=== PATIENT | female | born 1950 | race Caucasian/White ===

== ENCOUNTER 2017-08-16 09:33 | Inpatient (IN) | payer MEDICARE, OTHER ==
[~2017-08-16] VITALS: Ht 165.1 cm; Wt 68.9 kg
[~2017-08-16 09:33] MED LIST: BENAZEPRIL HCL10 MG; LEVOTHYROXIN0.125 M1; UNKNOWN BP MED; levoxyl
[2017-08-16 09:38] VITALS: BP 240/104
[2017-08-16] MEDS ORDERED: VASOTEC10 MG PO (09:44)
[2017-08-16 10:14] LABS: ABSOLUTE EOSINOPHILS 0.1 thou/uL (0.0-0.7); ABSOLUTE LYMPHOCYTES 1.3 thou/uL (0.8-5.3); ABSOLUTE MONOCYTES 0.5 thou/uL (0.0-1.2); ABSOLUTE NEUTROPHILS 2.2 thou/uL (1.6-8.1); BASOPHILS 0.9 %; EOSINOPHILS 1.3 %; HEMATOCRIT 46.4 % (37.0-47.0); HEMOGLOBIN 16.3 gm/dL (12.0-15.0); LYMPHOCYTES 31.9 %; MCH 32.1 pg (26.0-34.0); MCHC 35.1 g/dL (28.0-37.0); MCV 91.5 fL (80.0-100.0); MONOCYTES 11.7 %; MPV 6.7 fl. (7.2-11.1); NUCLEATED RBCS 0 /100WBC; PLATELET COUNT* 175 thou/uL (150-400); POLYS 54.2 %; RBC 5.08 mil/uL (4.20-5.00); RDW-CV 13.7 % (10.5-14.5); WBC 4.1 thou/uL (4.0-11.0)
[2017-08-16 10:19] LABS: ANION GAP 5 mmol/L (7-16); BUN 11 mg/dL (7-18); CALCIUM 9.1 mg/dL (8.5-10.1); CHLORIDE 106 mmol/L (98-107); CO2 30 mmol/L (21-32); CREATININE 0.7 mg/dL (0.6-1.3); GLUCOSE 106 mg/dL (70-99); POTASSIUM 3.3 mmol/L (3.5-5.1); SODIUM 141 mmol/L (136-145)
[2017-08-16 10:29] LABS: ALBUMIN 3.9 g/dL (3.4-5.0); ALKALINE PHOSPHATASE 79 U/L (46-116); LIPASE 246 U/L (73-393); SGOT 27 U/L (15-37); SGPT 28 U/L (30-65); TOTAL BILIRUBIN 0.4 mg/dL (<0.1-1.0); TOTAL PROTEIN 7.7 g/dL (6.4-8.2); TROPONIN-I LEVEL <0.06 ng/mL (<0.06)
[2017-08-16 11:05] LABS: URINE BILIRUBIN NEGATIVE (Negative); URINE BLOOD NEGATIVE (Negative); URINE CLARITY CLEAR; URINE COLOR YELLOW; URINE GLUCOSE-RANDOM NEGATIVE (Negative); URINE KETONES NEGATIVE (Negative); URINE NITRITE-REFLEX NEGATIVE (Negative); URINE PROTEIN NEGATIVE (Negative); URINE SPECIFIC GRAVITY <= 1.005 (1.005-1.030); URINE UROBILINOGEN 0.2 E.U./dl (0.2-1.0)
[2017-08-16 11:07] LABS: URINE LEUKOCYTES-REFLEX 2+ (Negative)
[2017-08-16 11:15] LABS: BACTERIA-REFLEX 1-9 Few /HPF (None Seen); SQUAMOUS 4-10 Moderate /LPF (0-3); TRANSITIONAL EPITHEL CELL 0-3 Few /LPF (None Seen); URINE RBC None Seen /HPF (0-2); URINE WBC-REFLEX 6-15 Few /HPF (0-5)
[2017-08-16 11:16] LABS: CASTS None Seen /LPF (None Seen); CRYSTALS None Seen /LPF (None Seen)
--- NOTE | 2017-08-16 12:02 | NUR ---
LT SIDE UPPER LIP SWELLING. NO TONGUE SWELLING. LEVAQUIN IV STOPPED IMMEDIATELY. 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 LEVAQUIN ADDED TO PT'S ALLERGIES. ORDER RECEIVED FOR BENADRYL IV NOW.
[2017-08-16 12:22] VITALS: BP 190/84
[2017-08-16 12:40] VITALS: BP 168/77
[2017-08-16] MEDS ORDERED: ASPIR 8181 MG PO (13:28)
[2017-08-16] MEDS ORDERED: VITAMIN D1000 UNI1 PO (13:30)
[2017-08-16 13:59] LABS: CALCIUM 8.7 mg/dL (8.5-10.1); CREATININE 0.7 mg/dL (0.6-1.3); MAGNESIUM 1.9 mg/dL (1.8-2.4); POTASSIUM 3.6 mmol/L (3.5-5.1)
--- NOTE | 2017-08-16 15:08 | NUR ---
PT ARRIVED TO THE FLOOR AT 1230 ADMITED UNDER THE CARE OF DR LEE. PT IS A&O X4 CALM AND COOPERATIVE. PT DENIES AND C/O N/V OR PAIN. PT ORIENTED TO UNIT AND SERVICES. VS OBTAINED AND NURSING ASSESSMENT COMPLETED. PT KEPT NPO FOR CARDIAC STRESS TEST. WILL CONTINUE TO CARRY OUT POC.
--- NOTE | 2017-08-16 15:38 | 2DMMODE ---
[place] [address] 2 D/M-MODE ECHOCARDIOGRAM Name: CARLO MORROW Room: [address] IN [facility]#: [id number] Admission: 08/16/17 Attend Phys: Carlos Gill Discharge: Date of : 48 Date of Service: 08/16/17 1538 Report #: [id number] THIS REPORT FOR: //name// APPROVED REPORT Study performed: 08/16/2017 14:44:18 EXAM: Comprehensive 2D, Doppler, and color-flow Echocardiogram Patient Location: In-Patient Room #: 209 Status: routine BSA: 1.78 HR: 62 bpm BP: 190/84 mmHg Rhythm: NSR Other Information Study Quality: Good Indications Chest Pain 2D Dimensions LVEF(%): 77.83 (>50%) IVSd: 10.75 (7-11mm) LVOT Diam: 21.16 (18-24mm) LVDd: 48.25 mm PWd: 8.40 (7-11mm) Ascending Ao: 30.64 (22-36mm) LVDs: 25.79 (25-40mm) Aortic Root: 27.40 mm Burgos's LVEF: 77.83 % Volumes Left Atrial Volume (Systole) LA ESV Index: 20.50 mL/m2 Aortic Valve AoV Peak Carlo.: 1.32 m/s AO Peak Gr.: 6.97 mmHg LVOT Max P.71 mmHg AO Mean Gr.: 3.64 mmHg LVOT Mean P.56 mmHg LVOT Max V: 0.96 m/s AO V2 VTI: 27.94 cm LVOT Mean V: 0.56 m/s LEEANNE (VTI): 2.63 cm2 LVOT V1 VTI: 20.91 cm Mitral Valve E/A Ratio: 0.83 [place] [address] 2 D/M-MODE ECHOCARDIOGRAM Name: CARLO MORROW Room: [address] IN ..#: [id number] Admission: 08/16/17 Attend Phys: Carlos Gill Discharge: Date of : 48 Date of Service: 08/16/17 1538 Report #: [id number] MV Decel. Time: 269.35 ms MV E Max Carlo.: 0.65 m/s MV PHT: 78.11 ms MVA (PHT): 2.82 cm2 TDI E/Lateral E': 8.13 E/Medial E': 9.29 Medial E' Carlo.: 0.07 m/s Lateral E' Carlo.: 0.08 m/s Pulmonary Valve PV Peak Carlo.: 0.93 m/s PV Peak Gr.: 3.47 mmHg Tricuspid Valve TR Peak Gr.: 27.19 mmHg RVSP: 32.00 mmHg Left Ventricle The left ventricle is normal size. There is normal LV segmental wall motion. There is normal left ventricular wall thickness. Left ventricular systolic function is normal. The left ventricular ejection fraction is within the normal range. LVEF is 60%. Grade I - abnormal relaxation pattern. Right Ventricle The right ventricle is normal size. The right ventricular systolic function is normal. Atria Left atrium is mildly dilated. The right atrium size is normal. Aortic Valve The aortic valve is normal in structure. No aortic regurgitation is present. There is no aortic valvular stenosis. Mitral Valve The mitral valve is normal in structure. Mild mitral regurgitation. No evidence of mitral valve stenosis. Tricuspid Valve The tricuspid valve is normal in structure. Mild tricuspid regurgitation. The RVSP is 30-35 mmHg. Pulmonic Valve The pulmonary valve is normal in structure. There is no pulmonic [place] [address] 2 D/M-MODE ECHOCARDIOGRAM Name: CARLO MORROW Room: [address] IN ..#: [id number] Admission: 08/16/17 Attend Phys: Carlos Gill Discharge: Date of : 48 Date of Service: 08/16/17 1538 Report #: [id number] Great Vessels The aortic root is normal in size. IVC is normal in size and collapses with >50% inspiration Pericardium There is no pericardial effusion. <Conclusion> The left ventricle is normal size. There is normal left ventricular wall thickness. Left ventricular systolic function is normal. The left ventricular ejection fraction is within the normal range. LVEF is 60%. Grade I - abnormal relaxation pattern. The right ventricle is normal size. Left atrium is mildly dilated. The right atrium size is normal. The aortic valve is normal in structure. The mitral valve is normal in structure. Mild mitral regurgitation. The tricuspid valve is normal in structure. Mild tricuspid regurgitation. The RVSP is 30-35 mmHg. IVC is normal in size and collapses with >50% inspiration There is no pericardial effusion. There is normal LV segmental wall motion. <ELECTRONICALLY SIGNED> By: Gary Kinney MD, FACC 08/16/17 1538 1538 1538 Gary Kinney MD, FACC /INF
--- NOTE | 2017-08-16 15:51 | EKG ---
[place] [address] ELECTROCARDIOGRAM REPORT Name: CARLO MORROW Room: [address] ADM IN [facility].#: [id number] Admission: 08/16/17 Attend Phys: Emery Siegel Discharge: Date of : 48 Report #: [id number] THIS REPORT FOR: //name// 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: [place] : 1950 Requested By: Erum Dominguez Order Number: [id number] MD: Gary Kinney Measurements Intervals [place] Rate: 79 P: 58 DC: 145 QRS: 50 QRSD: 96 T: 69 QT: 394 QTc: 452 Interpretive Statements Sinus rhythm Borderline ST depression, diffuse leads, possible ischemia Baseline wander in lead(s) II,III,aVF Compared to ECG 05/28/2012 08:11:39 ST (T wave) deviation now present Electronically Signed On 08-16-2017 15:50:56 BID ANALYST by Gary Kinney [email or web address] <ELECTRONICALLY SIGNED> By: Gary Kinney MD, [facility] 08/16/17 1550 0941 0941 Gary Kinney MD, [facility] /EPI
--- NOTE | 2017-08-16 16:56 | CARDNUC ---
[place] [address] CARDIAC NUCLEAR IMAGING REPORT Name: CARLO MORROW Room: [address] IN [facility]#: [id number] Admission: 08/16/17 Attend Phys: Carlos Gill Discharge: Date of : 48 Date of Service: 08/16/17 1656 Report #: [id number] THIS REPORT FOR: //name// APPROVED REPORT Exam: Nuclear Stress Test Indication: Chest pain Patient Location: In-Patient Room #: 209 Stress Tech: Betty Menendez Stress Nurse: Josey Shea RN NM Tech:RAUL Freeman Ht: 5 ft 5 in Wt: 156 lbs BSA: 1.78 m2 BMI: 25.95 Medical History Medical History: htn Medications: enalapril Allergies: levafloxacin Previous Cardiac Procedures: none Stress Test Details Stress Test: Exercise stress testing was performed using a Mo protocol. HR Resting HR: 80 bpm Max Heart Rate (APMHR): 152 bpm Max HR Achieved: 141 bpm Target HR (85% APMHR): 129 bpm % of APMHR: 92 Recovery HR: 75 bpm HR response to stress: Normal HR response to stress BP Resting BP: 159/106 mmHg Max BP: 225/101 mmHg BP response to stress: Abnormal hypertensive response to stress. ECG Resting ECG: Sinus Rhythm, normal EKG Stress ECG: Sinus Tachycardia ST Change: Upsloping ST depression Maximum ST Deviation: 0.5 mm Arrhythmia: None Recovery ECG: Sinus Rhythm, [place] [id number] CARDIAC NUCLEAR IMAGING REPORT Name: CARLO MORROW Room: [address]#: [id number] Admission: 08/16/17 Attend Phys: Carlos Gill Discharge: Date of : 48 Date of Service: 08/16/17 1656 Report #: [id number] Change: None Recovery Arrhythmia: None Clinical Reason for Termination: Completed protocol, Fatigue Stress Symptoms: Fatigue Exercise duration: 6 min sec Exercise capacity: 7.05 METs Overall Exercise Capacity for Age: reduced The patient had no significant symptoms with standard Mo protocol exercise. Exercise capacity was reduced. Stress ECG Conclusion The baseline 12-lead elect cardiac exam showed normal sinus rhythm with no significant ST or T wave abnormality. EKGs obtained during stress showed upsloping ST segment depression of approximately 0.5 mm that did not meet diagnostic criteria for inducible ischemia. Recovery EKGs were unremarkable. There were no significant stress-induced arrhythmias. The patient did have a hypertensive response to exercise. NM EXAM: Myocardial Perfusion REST/STRESS Imaging Protocol: Rest Tc-99m/Stress Tc-99m 1 day Resting Data Rest SPECT myocardial perfusion imaging was performed in supine position 30 minutes following the intravenous injection of 10.2 mCi of Tc-99m Sestamibi. Time of rest injection: 1405 Time of rest imagin The images were gated to evaluate regional wall motion and calculate left ventricular ejection fraction. Administration Route: IV Administration Site: Right AC Exercise Stress At peak stress, the patient was injected intravenously with 30.7mCi of Tc-99m Sestamibi. Time of stress injection: 1545 Time of stress imagin Administration Route: IV Administration Site: Right AC Gated Stress SPECT was performed 30 minutes after stress injection. The images were gated to evaluate regional wall motion and calculate left [place] [address] CARDIAC NUCLEAR IMAGING REPORT Name: CARLO MORROW Room: [address]#: [id number] Admission: 08/16/17 Attend Phys: Carlos Gill Discharge: Date of : 48 Date of Service: 08/16/17 1656 Report #: [id number] Prone imaging was performed. Study Quality Study: Good Artifact: No artifact Study Data At rest, the left ventricular ejection fraction was 74%.. Post stress, the left ventricular ejection was 72%.. TID = 0.95. Perfusion Normal left ventricular perfusion. Wall Motion Normal left ventricular wall motion. Nuclear Conclusion ECG Findings: negative for ischemia Clinical Findings: negative for ischemia Nuclear Findings: negative for ischemia Exercise Capacity: reduced Left Ventricular Function: normal Risk Study: low Myocardial perfusion images show no defects to suggest infarct or ischemia. Gated study showed normal left ventricular systolic function. This is a low risk study. <Conclusion> The baseline 12-lead elect cardiac exam showed normal sinus rhythm with no significant ST or T wave abnormality. EKGs obtained during stress showed upsloping ST segment depression of approximately 0.5 mm that did not meet diagnostic criteria for inducible ischemia. Recovery EKGs were unremarkable. There were no significant stress-induced arrhythmias. The patient did have a hypertensive response to exercise. <ELECTRONICALLY SIGNED> By: Cody Junior MD, FACC 08/16/17 1656 55 1656 Cody Junior MD, FACC /INF
--- NOTE | 2017-08-16 17:47 | NUR ---
PT CONTINUES TO BE A&O CALM AND COOPERATIVE. SHE WENT DOWN FOR A CARDIAC STRESS TEST THIS AFTERNOON AND DR VILLANUEVA CALLED AND REPORTED THAT HER STRESS TEST WAS NORMAL. PT RESTING IN BED IN LOW POSITION WITH CALL LIGHT AND PERSONAL ITEMS IN PLACE. NURSING WILL CONTINUE TO CARRY OUT POC.
[2017-08-16 20:33] VITALS: BP 135/61
[2017-08-17] VITALS: BP 141/63
[2017-08-17 04:00] VITALS: BP 137/65
[2017-08-17 05:00] LABS: ABSOLUTE BASOPHILS 0.1 thou/uL (0.0-0.2); ABSOLUTE EOSINOPHILS 0.2 thou/uL (0.0-0.7); ABSOLUTE LYMPHOCYTES 1.5 thou/uL (0.8-5.3); ABSOLUTE MONOCYTES 0.4 thou/uL (0.0-1.2); BASOPHILS 1.3 %; EOSINOPHILS 4.9 %; HEMATOCRIT 41.5 % (37.0-47.0); LYMPHOCYTES 34.9 %; MCH 31.5 pg (26.0-34.0); MCHC 34.3 g/dL (28.0-37.0); MCV 91.9 fL (80.0-100.0); MONOCYTES 9.6 %; MPV 6.8 fl. (7.2-11.1); NUCLEATED RBCS 0 /100WBC; PLATELET COUNT* 172 thou/uL (150-400); POLYS 49.3 %; RBC 4.52 mil/uL (4.20-5.00); RDW-CV 13.9 % (10.5-14.5); WBC 4.2 thou/uL (4.0-11.0)
[2017-08-17 05:27] LABS: CALCIUM 8.6 mg/dL (8.5-10.1); CREATININE 0.8 mg/dL (0.6-1.3)
[2017-08-17 05:45] LABS: HEMOGLOBIN 14.2 gm/dL (12.0-15.0)
--- NOTE | 2017-08-17 07:04 | NUR ---
PT IS ABLE TO COMMUNICATE HER NEEDS TO STAFF EFFECTIVELY. CURRENT PAIN MEDICATION REGIMEN HAS BEEN ADEQUATE FOR CONTROLLING HER PAIN UP TO THIS TIME.
[2017-08-17 07:35] VITALS: BP 153/70
[2017-08-17 12:18] VITALS: BP 137/74
[2017-08-17 14:20] VITALS: BP 137/74
[2017-08-17] MEDS ORDERED: BACTRIM DS TAB1 EACH PO (15:03)
[2017-08-17] MEDS ORDERED: LEVOXYL137 MCG PO (15:08)
--- NOTE | 2017-08-17 15:37 | NUR ---
ASSUMED CARE OF PT AT 0730. PT CONTINUES TO BE A&O X4 CALM AND COOPERATIVE. PT DENIES ANY C/O PAIN OR DISTRESS. SHE HAS NO C/O N/V, CP, OR SOA. PT UP AD FRANKI TO THE BATHROOM. PT IS BEING DISCHARGED OME TO DAY. PT AND VERBALIZED UNDERSTANDING OF DC INSTRUCTIONS THAT INCLUDED MEDICATION TEACHING. IV AND OPHTHALMIC TECHNICIAN APPRENTICE REMOVED PRIOR TO DC. PT VSS, SKIN WARM DRY AND INTACT, AND NO COMPLAINTS AT TIME OF DISCHAGE.
== END 2017-08-17 15:50 | disposition home or self-care (01) | DRG 690 ==
LOC: M.ERS 09:33 → M.TBA-ER 11:43 → M.2W 11:43
PROVIDERS: Nurse Practitioner Family; ADMIT Internal Medicine
PROC: B24CZZ4 Ultrasonography of Pericardium, Transesophageal (ICD-10-PCS; principal; 2017-08-16)
DX: N39.0 Urinary tract infection, site not specified (principal); I10 Essential (primary) hypertension; R07.89 Other chest pain; E87.6 Hypokalemia; E89.0 Postprocedural hypothyroidism; Z87.891 Personal history of nicotine dependence; Z79.82 Long term (current) use of aspirin; Z79.899 Other long term (current) drug therapy; Z88.1 Allergy status to other antibiotic agents; Z82.49 Family history of ischemic heart disease and other diseases of the circulatory system

== ENCOUNTER 2018-03-09 10:16 | Emergency (ER) | payer MEDICARE, OTHER ==
[~2018-03-09] VITALS: Ht 165.1 cm; Wt 70.3 kg
[~2018-03-09 10:16] MED LIST changes: +ASPIR 8181 MG PO; +BACTRIM DS TAB1 EACH PO; +LEVOXYL137 MCG PO; +VASOTEC10 MG PO; +VITAMIN D1000 UNI1 PO
[2018-03-09 10:39] LABS: ABSOLUTE BASOPHILS 0.1 thou/uL (0.0-0.2); ABSOLUTE EOSINOPHILS 0.2 thou/uL (0.0-0.7); ABSOLUTE LYMPHOCYTES 1.6 thou/uL (0.8-5.3); ABSOLUTE MONOCYTES 0.4 thou/uL (0.0-1.2); ABSOLUTE NEUTROPHILS 3.5 thou/uL (1.6-8.1); BASOPHILS 1.2 %; EOSINOPHILS 2.7 %; HEMATOCRIT 44.8 % (37.0-47.0); HEMOGLOBIN 15.4 gm/dL (12.0-15.0); LYMPHOCYTES 28.4 %; MCH 31.9 pg (26.0-34.0); MCHC 34.4 g/dL (28.0-37.0); MCV 92.8 fL (80.0-100.0); MONOCYTES 6.3 %; MPV 6.9 fl. (7.2-11.1); NUCLEATED RBCS 0 /100WBC; PLATELET COUNT* 207 thou/uL (150-400); POLYS 61.4 %; RBC 4.83 mil/uL (4.20-5.00); RDW-CV 13.7 % (10.5-14.5); WBC 5.8 thou/uL (4.0-11.0)
[2018-03-09 10:49] LABS: ANION GAP 10 mmol/L (7-16); BUN 9 mg/dL (7-18); CALCIUM 8.7 mg/dL (8.5-10.1); CHLORIDE 105 mmol/L (98-107); CO2 24 mmol/L (21-32); CREATININE 0.8 mg/dL (0.6-1.3); GLUCOSE 128 mg/dL (70-99); POTASSIUM 3.7 mmol/L (3.5-5.1); SODIUM 139 mmol/L (136-145)
[2018-03-09 10:57] LABS: ALBUMIN 4.1 g/dL (3.4-5.0); ALKALINE PHOSPHATASE 85 U/L (46-116); LIPASE 203 U/L (73-393); SGOT 22 U/L (15-37); SGPT 24 U/L (30-65); TOTAL BILIRUBIN 0.7 mg/dL (<0.1-1.0); TOTAL PROTEIN 7.2 g/dL (6.4-8.2); TROPONIN-I LEVEL <0.06 ng/mL (<0.06)
[2018-03-09 11:38] LABS: URINE BILIRUBIN NEGATIVE (Negative); URINE BLOOD NEGATIVE (Negative); URINE CLARITY SL CLOUDY; URINE COLOR YELLOW; URINE GLUCOSE-RANDOM NEGATIVE (Negative); URINE KETONES TRACE (Negative); URINE LEUKOCYTES-REFLEX 1+ (Negative); URINE NITRITE-REFLEX NEGATIVE (Negative); URINE PROTEIN NEGATIVE (Negative); URINE UROBILINOGEN 0.2 E.U./dl (0.2-1.0)
[2018-03-09 11:46] LABS: MUCUS 4-6 Moderate strn/LPF (None Seen); SQUAMOUS >10 Many /LPF (0-3)
[2018-03-09 11:47] LABS: CASTS None Seen /LPF (None Seen); URINE WBC-REFLEX 6-15 Few /HPF (0-5)
[2018-03-09 11:48] LABS: AMORPHOUS PHOSPHATES Moderate /LPF (None Seen); URINE RBC 0-2 Rare /HPF (0-2)
[2018-03-09] MEDS ORDERED: ZOFRAN ODT4 MG PO (12:44)
[2018-03-09] MEDS ORDERED: KEFLEX500 M1 PO (12:44)
[2018-03-09 13:41] VITALS: BP 136/76
--- NOTE | 2018-03-10 12:25 | EKG ---
[place] [address] ELECTROCARDIOGRAM REPORT Name: CARLO MORROW Reese Room: [facility]#: [id number] Admission: 03/09/18 Attend Phys: Discharge: 03/09/18 Date of : 48 Report #: [id number] THIS REPORT FOR: //name// [facility] ED Test Date: 2018-03-09 Test Time: 10:24:03 Pat Name: CARLO MORROW Department: Room: Gender: F Email Production Consultant: Leatha EASLEY : 1950 Requested By: Temo Queen Order Number: [id number] MD: Robert Dalton Measurements Intervals [place] Rate: 67 P: 5 RI: 136 QRS: 8 QRSD: 103 T: 26 QT: 444 QTc: 469 Interpretive Statements Sinus rhythm Compared to ECG 08/16/2017 09:41:41 ST (T wave) deviation no longer present Possible ischemia no longer present Electronically Signed On 03-10-2018 12:25:00 CDT by Robert Dalton [email or web address] <ELECTRONICALLY SIGNED> By: Robert Dalton MD, [facility] 03/10/18 1225 1024 1024 Robert Dalton MD, [facility] /EPI
== END 2018-03-09 13:42 | disposition home or self-care (01) ==
LOC: M.ERS 10:16
PROVIDERS: Nurse Practitioner Family
DX: K52.9 Noninfective gastroenteritis and colitis, unspecified (principal); N39.0 Urinary tract infection, site not specified; I10 Essential (primary) hypertension; E89.0 Postprocedural hypothyroidism; Z88.1 Allergy status to other antibiotic agents; Z77.22 Contact with and (suspected) exposure to environmental tobacco smoke (acute) (chronic)